=== PATIENT | male | born 1980 ===

== ENCOUNTER 2018-11-02 08:36 | Outpatient (CLI) | payer OTHER ==
[~2018-11-02] VITALS: Ht 177.8 cm; Wt 93.0 kg
[2018-11-02] MEDS ORDERED: DERMOTIC20 ML OTIC (11:12)
== END 2018-11-02 14:50 | disposition home or self-care (01) ==
LOC: OFIC 805 08:36
DX: H92.02 Otalgia, left ear (principal); G47.33 Obstructive sleep apnea (adult) (pediatric); J31.0 Chronic rhinitis